=== PATIENT | female | born 1940 | race Caucasian/White ===

== ENCOUNTER → 2017-03-22 | Outpatient (CLI) | payer OTHER ==
[~2017-03-22] MED LIST: BENADRYL25 MG PO; CALCIUM CARBON600 M1 PO; CELEXA40 MG PO; COUMADIN PO; Calcium Carbonate,Ca PO; Coumadin dosing per PO; HYDROCHLOROTHIA25 MG PO; Hydrodiuril,Oretic,E PO; KEFLEX500 MG PO; LEXAPRO20 MG PO; LIPITOR10 MG PO; LIPITOR80 MG PO; LISINOPRIL40 MG PO; NORVASC10 MG PO; NORVASC5 MG PO; POTASSIUM20 MEQ/11; PREMARIN0.625 MG PO; PROMETHAZINE HC25 M1 PO; ROCEPHIN2 GM/50 ML IV; SENOKOT S,PE1 TABLET PO; TOPROL XL200 MG PO; Vicodin,Lortab 5/500 PO; WELLBUTRIN SR150 MG PO
== END | disposition home or self-care (01) ==
LOC: NUC 07:10
DX: I35.9 Nonrheumatic aortic valve disorder, unspecified (principal); R06.02 Shortness of breath
CPT/HCPCS: 78452; 93017; A9500; J2785

== ENCOUNTER 2017-10-23 20:51 | Emergency (ER) | payer OTHER ==
[~2017-10-23] VITALS: Ht 160 cm; Wt 85.9 kg
[2017-10-24] MEDS ORDERED: NORCO 5/3251 TABLET PO (00:36)
[2017-10-24 00:53] VITALS: BP 148/107
== END 2017-10-24 00:55 | disposition home or self-care (01) ==
LOC: EME 20:51
DX: S82.032A Displaced transverse fracture of left patella, initial encounter for closed fracture (principal); S50.01XA Contusion of right elbow, initial encounter; S50.02XA Contusion of left elbow, initial encounter; M25.561 Pain in right knee; S50.312A Abrasion of left elbow, initial encounter; S50.311A Abrasion of right elbow, initial encounter; Z88.2 Allergy status to sulfonamides; W10.9XXA Fall (on) (from) unspecified stairs and steps, initial encounter
CPT/HCPCS: 73564; 99281; 99284; J3010